=== PATIENT | male | born 1995 | race Caucasian/White ===

== ENCOUNTER → 2020-11-09 10:53 | Outpatient (BNVA) | payer OTHER, SELFPAY | PROVIDERS: Family Provider Nurse Practitioner Family; PCP Nurse Practitioner Family; Visit Provider Nurse Practitioner Family | DX: I10 Essential (primary) hypertension (principal); R09.89 Other specified symptoms and signs involving the circulatory and respiratory systems | CPT/HCPCS: 80053; 80061; 82607; 84443; 85025 ==

== ENCOUNTER 2023-11-27 23:54 | Inpatient (IN) | payer SELFPAY ==
--- NOTE | 2023-11-27 23:59 | ECG_ITS ---
[facility] Test Date: 2023-11-28 Pat Name: Madhu Malcolm Department: Room: 125 Gender: Male Dice Table Person: : 1995 Requested By: Carissa Callaway Order Number: [id number] En MD: Neil Holt M.D. Measurements Intervals [place] Rate: 66 P: 42 SC: 170 QRS: -1 QRSD: 99 T: 14 QT: 387 QTc: 408 Interpretive Statements SINUS RHYTHM MINIMAL VOLTAGE CRITERIA FOR LVH, CONSIDER NORMAL VARIANT [MEETS CRITERIA IN ONE OF: R(aVL), S(V1), R(V5), R(V5/V6)+S(V1)] No previous ECG available for comparison Electronically Signed On 11-28-2023 15:47:19 CDT by Neil Holt M.D. [id number]
[2023-11-28] VITALS (7 sets, daily range): BP systolic 98–146; BP diastolic 45–98; PULSE 67–88; RESP 14–17; TEMP 36.6–36.8; O2SAT 95–98; BMI 33.5
--- NOTE | 2023-11-28 00:31 | PC.NURSE ---
Patient was dressed out of street clothes, placed in green paper scrubs and all belongings removed, placed in labeled bags. Patient was then placed in cleared room with PSA present.
--- NOTE | 2023-11-28 00:42 | W.ED.PSYCHS ---
HPI - Psych General: Chief Complaint: Psychiatric Symptoms Stated Complaint: SI Time Seen by Provider: 11/27/23 23:59 History of Present Illness: 28-year-old man who presents to the emergency room with depression and suicidal thoughts. He says this was triggered by some social events. He does not care to elaborate at this time. He says he does not take depression medications and he has never had to be admitted for this before. He does not have a specific plan. He says he does want to be admitted and wants help. Review of Systems Narrative: Constitutional symptoms: Negative except as documented in HPI. Skin symptoms: Negative except as documented in HPI. Eye symptoms: Negative except as documented in HPI. ENMT symptoms: Negative except as documented in HPI. Respiratory symptoms: Negative except as documented in HPI. Cardiovascular symptoms: Negative except as documented in HPI. Gastrointestinal symptoms: Negative except as documented in HPI. Genitourinary symptoms: Negative except as documented in HPI. Musculoskeletal symptoms: Negative except as documented in HPI. Neurologic symptoms: Negative except as documented in HPI. Psychiatric symptoms: Negative except as documented in HPI. Endocrine symptoms: Negative except as documented in HPI. [facility] PFSH: Medical History No pertinent past medical history Surgical History No pertinent past surgical history Family History Family/Other Diabetes CAD (coronary artery disease) Denies family history of Clotting disorder Bleeding disorder Social History Smoking and tobacco/nicotine status: former use of tobacco/nicotine Second hand smoke exposure: No Alcohol intake: never Substance/Drug Use: never Adopted: No Caregiver/support person: No Lives independently: Yes Marital status: Single service: No Current occupational status: employed Current occupation: [employer] Current gender identity: Male Special suellen needs: No Agree to transfusion: Yes Physical Exam Narrative: EXAM NARRATIVE: General: Alert. no acute distress Skin: Warm, dry Head: Normocephalic, atraumatic. Neck: Supple, trachea midline. Eye: Extraocular movements are intact. Ears, nose, mouth and throat: Oral mucosa moist. Cardiovascular: Regular rate and rhythm, Normal peripheral perfusion. Respiratory: Lungs are clear to auscultation, respirations are non-labored, breath sounds are equal, Symmetrical chest wall expansion. Gastrointestinal: Soft, Nontender, Non distended, Normal bowel sounds. Musculoskeletal: Normal ROM, no deformity. Neurological: Alert and oriented to person, place, time, and situation, No focal neurological deficit observed. Psychiatric: Cooperative, depressed, expresses suicidal ideation. Course Vital Signs: Vital signs: Vital Signs Temperature 98.0 F 11/28/23 00:11 Pulse Rate 85 11/28/23 00:11 Respiratory Rate 14 11/28/23 00:11 Blood Pressure 98/78 11/28/23 00:11 Pulse Oximetry 95 11/28/23 00:11 Oxygen Delivery Me thod Room Air 11/28/23 00:11 [facility] - Psych Medical Decision Making Differential diagnosis: Patient with reported depression and suicidal ideation. concerns for infection, alcohol intoxication, cardiac issues or other medical problems prior to psychiatric admission. Workup: labwork, ekg ordered to evaluate the pathologies and to clear the patient medically prior to psychiatric admission Lab review: - Medically cleared. - EKG shows no ischemic changes. - Blood alcohol level is negative, as well as salicylate and Tylenol. - Drug screen is negative - No signs of infection, urinalysis clear and white count is not elevated - No anemia. - BUN and creatinine are within normal limits. EKG: Time 0018 rate 66 normal sinus rhythm, No ST-T changes, no ectopy, normal RI & QRS intervals, This was reviewed and interpreted by myself the ER physician at 0020 Consultation: I spoke with Dr. Heart who agrees with admission. Assessment and plan: Depression Suicidal ideation -Admission to neuropsychiatric unit for continued evaluation and treatment. - All lab work was reviewed and interpreted personally by myself, the ER physician - Evaluation and treatment of this problem were appropriate in the emergency setting Lab Data 11/28/23 00:43 11/28/23 00:43 Laboratory Results WBC 10.27 10^3/uL (3.29-11.43) 11/28/23 00:43 RBC 5.76 10^6/uL (3.85-5.65) H 11/28/23 00:43 Hgb 15.80 g/dL (11.27-16.99) 11/28/23 00:43 Hct 48.9 % (37-53) 11/28/23 00:43 MCV 84.9 fl (82-101) 11/28/23 00:43 MCH 27.4 pg (27-33) 11/28/23 00:43 MCHC 32.3 g/dL (30-55) 11/28/23 00:43 RDW 12.5 % (12.1-15.1) 11/28/23 00:43 Plt Count 264 10^3/cmm (157-399) 11/28/23 00:43 MPV 9.4 fL (7.4-10.4) 11/28/23 00:43 Neut % (Auto) 61.7 % 11/28/23 00:43 Lymph % (Auto) 30.4 % 11/28/23 00:43 [place] % (Auto) 6.6 % 11/28/23 00:43 Eos % (Auto) 0.4 % 11/28/23 00:43 Baso % (Auto) 0.6 % 11/28/23 00:43 Neut # (Auto) 6.34 10^3/uL (1.8-7.7) 11/28/23 00:43 Lymph # (Auto) 3.1 10^3/uL (0.8-4.8) 11/28/23 00:43 [place] # (Auto) 0.7 10^3/uL (0.2-0.9) 11/28/23 00:43 Eos # (Auto) 0.0 10^3/uL (0.0-0.8) 11/28/23 00:43 Baso # (Auto) 0.1 10^3/uL (0.0-0.1) 11/28/23 00:43 Nucleated RBC % (auto) 0 % 11/28/23 00:43 Nucleated RBCs # 0.0 /100WBC 11/28/23 00:43 Sodium 139 mmol/L (136-145) 11/28/23 00:43 Potassium 3.9 mmol/L (3.5-5.1) 11/28/23 00:43 Chloride 103 mmol/L (98-107) 11/28/23 00:43 Carbon Dioxide 26 mmol/L (22-29) 11/28/23 00:43 Anion Gap 13.9 (5-19) 11/28/23 00:43 BUN 7 mg/dL (6-20) 11/28/23 00:43 Creatinine 0.9 mg/dL (0.7-1.2) 11/28/23 00:43 GFR Calculation 100.5 mL/min (90-130) 11/28/23 00:43 Glucose 105 mg/dL (65-115) 11/28/23 00:43 Calculated Osmolality 286 mOsm/kg (285-295) 11/28/23 00:43 Calcium 8.9 mg/dL (8.5-10.5) 11/28/23 00:43 Total Bilirubin 0.8 mg/dL (0.15-1.2) 11/28/23 00:43 AST 21 U/L (0-40) 11/28/23 00:43 ALT 28 U/L (0-41) 11/28/23 00:43 Alkaline Phosphatase 86 U/L (40-130) 11/28/23 00:43 Total Protein 7.3 g/dL (6.6-8.7) 11/28/23 00:43 Albumin 4.1 g/dL (3.5-5.2) 11/28/23 00:43 Globulin 3.2 g/dL (1.3-4.6) 11/28/23 00:43 TSH 1.37 uIU/mL (0.27-4.20) 11/28/23 00:43 Urine Color Yellow (Yellow) 11/28/23 01:43 Urine Appearance Clear (CLEAR) 11/28/23 01:43 Urine pH 6 (5-7) 11/28/23 01:43 Ur Specific [place] 1.010 (1.005-1.030) 11/28/23 01:43 Urine Protein Neg (Negative) 11/28/23 01:43 Urine Glucose (UA) Norm (Normal) 11/28/23 01:43 Urine Ketones Negative (Negative) 11/28/23 01:43 Urine Blood Neg (Negative) 11/28/23 01:43 Urine Nitrate Negative (Negative) 11/28/23 01:43 Urine Bilirubin Neg (Negative) 11/28/23 01:43 Urine Urobilinogen Neg mg/dL (Negative) 11/28/23 01:43 Ur Leukocyte Esterase Negative (Negative) 11/28/23 01:43 Urine RBC None /hpf (0-2) 11/28/23 01:43 Urine WBC None /hpf (0-5) 11/28/23 01:43 Ur Squamous Epith Cells None /hpf (0-5) 11/28/23 01:43 Amorphous Sediment Not Reportable 11/28/23 01:43 Urine Bacteria None /hpf (NONE) 11/28/23 01:43 Salicylates < 0.3 mg/dL (3-10) L 11/28/23 00:43 Urine Opiates Screen Negative ng/mL (Negative) 11/28/23 01:43 Acetaminophen < 5.0 ug/mL (10-30) L 11/28/23 00:43 Ur Barbiturates Screen Negative ng/mL (Negative) 11/28/23 01:43 Ur Phencyclidine Scrn Negative ng/mL (Negative) 11/28/23 01:43 Ur Amphetamines Screen Negative ng/mL (Negative) 11/28/23 01:43 U Benzodiazepines Scrn Negative ng/mL (Negative) 11/28/23 01:43 Urine Cocaine Screen Negative ng/mL (Negative) 11/28/23 01:43 U Marijuana (THC) Screen Negative ng/mL (Negative) 11/28/23 01:43 Ethyl Alcohol < 10 mg/dL (0-10) 11/28/23 00:43 No radiology studies performed this visit Discharge Plan Discharge Patient Disposition: Admitted As Inpatient Clinical Impression: Suicidal ideation, Depression Condition: Stable Coding Level of Care Code ED Publisher Assistant for Lis Meng
[2023-11-28 00:51] LABS: Basophils # 0.1 10^3/uL (0.0-0.1); Basophils % 0.6 %; Eosinophils % 0.4 %; Hematocrit 48.9 % (37-53); Lymphocytes # 3.1 10^3/uL (0.8-4.8); Lymphocytes % 30.4 %; Mean Corpuscular HGB Conc 32.3 g/dL (30-55); Mean Corpuscular Hemoglobin 27.4 pg (27-33); Mean Corpuscular Volume 84.9 fl (82-101); Mean Platelet Volume 9.4 fL (7.4-10.4); Monocytes # 0.7 10^3/uL (0.2-0.9); Monocytes % 6.6 %; Neutrophils # 6.34 10^3/uL (1.8-7.7); Neutrophils % 61.7 %; Nucleated Red Blood Cells % 0 %; Platelet Count 264 10^3/cmm (157-399); Red Blood Count 5.76 10^6/uL (3.85-5.65); Red Cell Distribution Width 12.5 % (12.1-15.1); White Blood Count 10.27 10^3/uL (3.29-11.43)
[2023-11-28 01:15] LABS: Alanine Aminotransferase 28 U/L (0-41); Albumin Level 4.1 g/dL (3.5-5.2); Alkaline Phosphatase 86 U/L (40-130); Anion Gap 13.9 (5-19); Aspartate Amino Transferase 21 U/L (0-40); Blood Urea Nitrogen 7 mg/dL (6-20); Calcium 8.9 mg/dL (8.5-10.5); Carbon Dioxide 26 mmol/L (22-29); Chloride 103 mmol/L (98-107); Creatinine Clr Calc Pharmacy 153.3515; Globulin 3.2 g/dL (1.3-4.6); Glomerular Filtration Rate 100.5 mL/min (90-130); Glucose 105 mg/dL (65-115); Osmolality Calculated 286 mOsm/kg (285-295); Potassium 3.9 mmol/L (3.5-5.1); Sodium 139 mmol/L (136-145); Total Bilirubin 0.8 mg/dL (0.15-1.2); Total Protein 7.3 g/dL (6.6-8.7)
[2023-11-28 01:16] LABS: Acetaminophen < 5.0 ug/mL (10-30); Alcohol Level < 10 mg/dL (0-10); Salicylate < 0.3 mg/dL (3-10)
[2023-11-28 01:19] LABS: Thyroid Stimulating Hormone 1.37 uIU/mL (0.27-4.20)
[2023-11-28 01:58] LABS: Amphetamines Screen Urine Negative (Negative); Barbiturates Screen Urine Negative (Negative); Benzodiazepines Screen Urine Negative (Negative); Cocaine Screen Urine Negative (Negative); Opiate Screen Urine Negative (Negative); PCP Screen Urine Negative (Negative); THC Screen Urine Negative (Negative)
[2023-11-28 02:02] LABS: Add Urine Culture? No; Bilirubin Urine Neg (Negative); Blood Urine Neg (Negative); Glucose Urine UA Norm (Normal); Ketones Urine Negative (Negative); Leukocyte Esterase Urine Negative (Negative); Nitrate Urine Negative (Negative); Protein Urine Neg (Negative); Urine Appearance Clear (CLEAR); Urine Color Yellow (Yellow); Urobilinogen Urine Neg (Negative); pH Urine 6 (5-7)
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
[2023-11-28] MEDS: fluoxetine 20 mg Capsule PO (21:32)
[2023-11-29 06:00] VITALS: BP 133/71; PULSE 72; RESP 18; TEMP 36.8; O2SAT 96
[2023-11-29] MEDS: fluoxetine 20 mg Capsule PO (09:03)
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
[2023-11-29 14:00] VITALS: BP 127/76; PULSE 81; RESP 16; TEMP 36.7; O2SAT 94
[2023-11-29 19:35] VITALS: BP 127/78; PULSE 92; RESP 16; TEMP 36.8; O2SAT 96
[2023-11-29] MEDS: sennosides-docusate Tablet 1 TAB PO (22:22)
[2023-11-30 06:00] VITALS: BP 123/88; PULSE 104; RESP 17; TEMP 36.6; O2SAT 96
[2023-11-30] MEDS: fluoxetine 20 mg Capsule PO (08:03)
[2023-11-30 14:00] VITALS: BP 114/71; PULSE 70; RESP 16; TEMP 36.6; O2SAT 96
[2023-11-30 20:03] VITALS: BP 111/74; PULSE 89; RESP 16; TEMP 36.6; O2SAT 97
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
[2023-11-30] MEDS: ARIPiprazole 10 mg Tablet 5 MG PO (20:50)
[2023-12-01 06:00] VITALS: BP 126/79; PULSE 87; RESP 17; O2SAT 97
[2023-12-01] MEDS: ARIPiprazole 10 mg Tablet 5 MG PO (09:51)
[2023-12-01] MEDS: fluoxetine 20 mg Capsule PO (09:51)
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
[2023-12-01 13:35] VITALS: BP 126/79; PULSE 87; RESP 17; O2SAT 97
== END 2023-12-01 15:16 | disposition home or self-care (01) | DRG 883 ==
LOC: ER 11-28 01:36 → NP 11-28 02:25
PROVIDERS: Admitting Provider Psychiatry & Neurology Psychiatry; Emergency Provider Emergency Medicine; Visit Provider Psychiatry & Neurology Psychiatry
DX: F34.0 Cyclothymic disorder (principal); R45.851 Suicidal ideations; F63.9 Impulse disorder, unspecified; F32.9 Major depressive disorder, single episode, unspecified; Z87.828 Personal history of other (healed) physical injury and trauma
CPT/HCPCS: 36415; 80053; 80306; 80307; 81001; 84443; 85025; 93005; 97150; 97165; 99285

== ENCOUNTER → 2024-02-19 10:22 | Outpatient (BNVA) | payer OTHER, SELFPAY | PROVIDERS: Visit Provider Nurse Practitioner Psychiatric/Mental Health | DX: F63.9 Impulse disorder, unspecified (principal); F90.2 Attention-deficit hyperactivity disorder, combined type | CPT/HCPCS: 80061; 83036 ==

== ENCOUNTER → 2024-12-04 13:32 | Outpatient (BNVA) | payer MEDICAID, SELFPAY ==
[2024-04-08 15:07] VITALS: BP 131/88; BMI 34.7
== END ==
PROVIDERS: PCP Nurse Practitioner Psychiatric/Mental Health; Visit Provider Psychiatry & Neurology Neurology
DX: R41.3 Other amnesia (principal); F63.9 Impulse disorder, unspecified; R41.840 Attention and concentration deficit
CPT/HCPCS: 36415; 82306; 82607; 82746; 83735; 83921

== ENCOUNTER 2024-12-17 14:29 | Outpatient (CLI) | payer MEDICAID, SELFPAY ==
[2024-04-08 15:07] VITALS: BP 131/88; BMI 34.7
[2024-12-10 11:37] VITALS: BP 131/88; BMI 34.7
--- NOTE | 2024-12-17 14:45 | MR_ITS ---
WS: [id number] MRA ANGIOGRAPHY [place] OF [place] HISTORY: R41.3 - Other amnesia COMPARISON: None available. TECHNIQUE: 3-D MR angiography is performed of the resighini of [place]. All images are reviewed including source images. Very small caliber distal RIGHT vertebral artery. LEFT vertebral artery is dominant and tortuous and crosses to the RIGHT of midline. Basilar artery is intact. Posterior cerebral arteries are normal. Posterior communicating arteries are normal. Intracranial portion of the internal carotid arteries are normal course and caliber. No significant atherosclerosis, stenosis or aneurysm identified. Middle and anterior cerebral arteries are both patent with no significant disease. Anterior communicating artery is also normal. MR/MR angio head wo con [id number] IMPRESSION: 1. Small caliber distal RIGHT vertebral artery. 2. Dominant LEFT vertebral artery. 3. No occlusions or aneurysms in the resighini of Olivo.
--- NOTE | 2024-12-17 15:00 | MR_ITS ---
WS: [id number] MRA CAROTID ARTERIES HISTORY: R41.3 - Other amnesia COMPARISON: None available. TECHNIQUE: MRA is performed with intravenous gadolinium. MIP and source images are reviewed. Right: Normal cervical carotid artery. Bifurcation is intact. No stenosis. Left: Normal cervical carotid artery. Carotid artery arises at the base of the innominate. No stenosis. Bifurcation is intact. Subclavian Arteries: Normal. Vertebral Arteries: Dominant LEFT vertebral artery. Small caliber RIGHT vertebral artery with decreased signal throughout. There is less enhancement within the RIGHT vertebral artery. Distal RIGHT vertebral artery is very small caliber but probably patent. MR/MR angio neck w con* [id number] IMPRESSION: 1. No cervical carotid artery stenosis. 2. Small caliber RIGHT vertebral artery with decreased enhancement. Probably n ormal variant for this patient. If further evaluation is thought necessary clin ically CT angiogram of the carotid arteries with attention to the vertebral art eries can be obtained. Vertebral dissection is a possibility.
[2024-12-17] MEDS: gadobenate dimeglumine 20 mL vial IV (15:08)
== END 2024-12-17 14:30 | disposition home or self-care (01) ==
PROVIDERS: PCP Nurse Practitioner Psychiatric/Mental Health; Visit Provider Psychiatry & Neurology Neurology
DX: R41.3 Other amnesia (principal)
CPT/HCPCS: 70544; 70548

== ENCOUNTER 2024-12-23 12:47 | Outpatient (CLI) | payer MEDICAID, SELFPAY ==
[2024-04-08 15:07] VITALS: BP 131/88; BMI 34.7
[2024-12-10 11:37] VITALS: BP 131/88; BMI 34.7
--- NOTE | 2024-12-23 13:00 | MR_ITS ---
WS: [id number] MRI HEAD WITH CONTRAST TECHNIQUE: Sagittal T1, T2 axial, T2 axial FLAIR, axial susceptibility weighted imaging, axial diffusion weighted images, and coronal T2 images were obtained. Pre and post-T1 axial and post T1 coronal images. ADC and FSPGR images. CLINICAL INFORMATION: F63.9 - Impulse disorder, unspecified FINDINGS: No evidence of restricted diffusion to suggest acute ischemia. Ventricular system and basal cisterns are patent. Tiny amount of gliosis in the LEFT periventricular white matter adjacent to the occipital horn. No other suspicious intracranial signal normalities. Mesial temporal lobes are normal in appearance. Normal kendrick-white differentiation. Normal posterior fossa. Normal vascular flow voids at the skull base. Extra- axial fluid collections. Retention cyst RIGHT maxillary sinus measuring 13 mm. Paranasal sinuses are otherwise well aerated. Normal posterior nasopharynx. No hemosiderin. Normal optic chiasm and pituitary infundibulum. Incidental 5 mm pineal cyst. No abnormal gadolinium enhancement. Normal dural venous sinuses. MR/MR head wo/w con [id number] IMPRESSION: 1. No evidence of restricted diffusion to suggest acute ischemia. 2. Tiny foci of gliosis in the LEFT occipital periventricular white matter of doubtful clinical significance but can be seen with prior infectious, inflammat ory, or ischemic etiologies. Demyelinating disease less likely. Normal corpus c allosum. 3. No other suspicious intracranial signal abnormalities. 4. No abnormal gadolinium enhancement. 5. No hemosiderin on the susceptibly weighted images. 6. No other acute findings.
[2024-12-23] MEDS: gadobenate dimeglumine 20 mL vial IV (13:27)
== END 2024-12-23 12:48 | disposition home or self-care (01) ==
PROVIDERS: PCP Nurse Practitioner Psychiatric/Mental Health; Visit Provider Psychiatry & Neurology Neurology
DX: F63.9 Impulse disorder, unspecified (principal); R41.3 Other amnesia; R93.0 Abnormal findings on diagnostic imaging of skull and head, not elsewhere classified; M27.40 Unspecified cyst of jaw
CPT/HCPCS: 70553

== ENCOUNTER 2025-01-18 09:55 | Outpatient (CLI) | payer MEDICAID, SELFPAY ==
[2024-12-10 11:37] VITALS: BP 131/88; BMI 34.7
--- NOTE | 2025-01-18 10:00 | CT_ITS ---
WS: [id number] CTA HEAD AND NECK TECHNIQUE: Contrast enhanced CTA of the head and neck with coronal and sagittal reformatted images and maximum intensity projection (MIP) images. NASCET criteria utilized. CLINICAL INFORMATION: S06.9XAA - Unspecified intracranial injury with loss of c... COMPARISON: MRA neck 12/17/2024 DLP: 1258.[address] scans at [facility] use at least one of these dose optimization techniques: automated exposure control; mA and/or kV adjustment per patient size (includes targeted exams where dose is matched to clinical indication); or iterative reconstruction. FINDINGS: RIGHT: No significant RIGHT ICA stenosis. LEFT: No significant LEFT ICA stenosis. LEFT dominant vertebral artery. Smaller but patent RIGHT vertebral artery. Basilar artery is patent. Patent RIGHT posterior communicating artery. Normal vascularity to the [facility] territory bilaterally. Both ICAs are patent at the skull base. Normal vascularity to the CHANEL territory. Patent anterior communicating artery. Normal vascularity to the MCA territories bilaterally. No evidence of proximal flow-limiting stenosis Proximal subclavian arteries are patent. Retention cyst RIGHT maxillary sinus measuring [address]/CT angio headneck* [id number] IMPRESSION: 1. No significant cervical ICA stenosis bilaterally. 2. Both vertebral arteries are patent. LEFT dominant vertebral artery. Normal variant small RIGHT vertebral artery. No evidence of dissection. Distal RIGHT v ertebral artery partially ends in PICA. 3. No evidence of intracranial flow-limiting stenosis. 4. No other acute findings.
[2025-01-18] MEDS: iohexol 350 mg/mL 500 mL Btl (per mL) IV (10:38)
== END 2025-01-18 09:56 | disposition home or self-care (01) ==
LOC: RAD 09:57
PROVIDERS: PCP Nurse Practitioner Psychiatric/Mental Health; Visit Provider Psychiatry & Neurology Neurology
DX: S06.9XAA Unspecified intracranial injury with loss of consciousness status unknown, initial encounter (principal); X58.XXXA Exposure to other specified factors, initial encounter
CPT/HCPCS: 70496; 70498